=== PATIENT | male | born 1990 | race African-American/Black ===

== ENCOUNTER 2016-09-14 02:00 | Inpatient (IN) | payer OTHER ==
--- NOTE | ~2016-09-14 | DS ---
Unit #: [id number] #: [id number] Patient: MOODY HELLER [id number] [facility] [address] [place] [address] [id number] MR#: [id number] NAME: MOODY HELLER ROOM: [facility] Age: 26 Sex: M Admission Date: 09/14/2016 : 1990 Discharge Date: 09/16/2016 Attending Physician: Ortega Zelaya M.D. Primary Care Physician: Primary Care Physician No DISCHARGE SUMMARY REASON FOR ADMISSION The patient is 26-year-old male, admitted to the [facility] unit for alcohol detox. HOSPITAL COURSE The patient was admitted to the [facility] unit and placed on routine detoxification protocol for alcohol. His stay in the hospital was a brief and uneventful one. He was continued on previously prescribed Seroquel 100 mg at h.s. Family therapy session did take place on 09/16/2016. Discharge took place thereafter with the patient to follow in the dual track chemical dependency intensive outpatient program provided by this facility and through the auspices of the [facility] Department of Psychiatry. FINAL DIAGNOSES Alcohol use disorder; schizoaffective disorder. DISPOSITION ON DISCHARGE The patient is discharged on the following medications: Seroquel 100 mg at bedtime for psychosis. DISCHARGE INSTRUCTIONS No dietary or physical restrictions were placed upon the patient at the time of discharge. FOLLOWUP Followup will take place through the auspices of community mental health resources and the chemical dependency intensive outpatient program provided by this facility and the [facility] Department of Psychiatry. PROGNOSIS The patient's prognosis is considered fair. Dictated by... Ortega Zelaya M.D. CB/rj TD: 09/16/2016 15:43 JOB #: [id number] Unit #: [id number] #: [id number] Patient: MOODY HELLER DISCHARGE SUMMARY Page 1 of 1 X Ortega Zelaya MD X DISCHARGE SUMMARY
--- NOTE | ~2016-09-14 | PN ---
Unit #: [id number] #: [id number] Patient: MOODY HELLER [id number] [facility] [address] [place] [address] [id number] MR#: [id number] NAME: MOODY HELLER ROOM: [facility] Age: 26 Sex: M Admission Date: 09/14/2016 : 1990 Attending Physician: Ortega Zelaya M.D. Admitting Physician: Ortega Zelaya M.D. Primary Care Physician: Primary Care Physician Maru HILL PROGRESS NOTES DATE 09/15/2016 DISCUSSION The patient is in bright spirits today and offers no complaint. He is tolerating medications, and his detox is continuing uneventfully. The patient does report that he does not take Zyprexa at home and wishes to discontinue this medication, and it will be discontinued. Dictated by... Ortega Zelaya M.D. CB/consuelo TD: 09/15/2016 15:10 JOB #: [id number] SERGIO VILLANUEVA NOTES Page 1 of 1 X Ortega Zelaya MD PROGRESS NOTE
--- NOTE | ~2016-09-14 | HP ---
Unit #: [id number] #: [id number] Patient: MOODY HELLER [id number] [place] [address] [id number] I MR#: [id number] NAME: MOODY HELLER ROOM: 74 Age: 26 Sex: M Admission Date: 09/14/2016 : 1990 Attending Physician: Ortega Zelaya M.D. Admitting Physician: Ortega Zelaya M.D. Primary Care Physician: Primary Care Physician No HISTORY AND PHYSICAL HISTORY OF PRESENT ILLNESS Moody is a 26 year old admitted to [facility] because of his abuse of alcohol. He is detoxing. PAST MEDICAL HISTORY Long history of alcohol abuse. PAST SURGICAL HISTORY Nothing reported. ALLERGIES No known drug allergies. SOCIAL HISTORY He does not smoke. Drinks at least a pint of liquor on a daily basis and denies illicit drug use. FAMILY HISTORY Medically noncontributory. REVIEW OF SYSTEMS CONSTITUTIONAL: No fever or chills. HEENT: Denies any sore throat, ear pain or runny nose. CARDIOVASCULAR: Denies chest pain, irregular heart rhythm or palpitations. CHEST: Denies shortness of breath or cough. No hemoptysis. GASTROINTESTINAL: Denies nausea, vomiting, diarrhea or chronic constipation. ENDOCRINE: Denies history of increased thirst or urination. No recent significant weight loss or gain. GENITOURINARY: Denies dysuria, frequency, or hematuria. SKIN: Denies any rashes. HEMATOLOGIC: Denies history of increased bleeding or bruising. MUSCULOSKELETAL: Denies any hot, swollen joints. No generalized muscle pain. NEUROLOGIC: Denies problems with vision or speech. No frequent, severe headaches. No numbness, tingling or weakness in any extremities. Denies loss of bladder or bowel control. CURRENT MEDICATIONS 1. Detox protocol. 2. Zyprexa 2.5 mg q.h.s. 3. Seroquel 100 mg q.h.s. Unit #: [id number] #: [id number] Patient: MOODY HELLER PHYSICAL EXAMINATION GENERAL: Alert, well-nourished, in no apparent distress. VITAL SIGNS: Blood pressure 117/56, heart rate 60, respirations 16, temperature 98.6. WEIGHT: 270. HEIGHT: 6 feet 2 inches. SKIN: Warm and dry without rash or lesion. HEENT: Normocephalic. TMs not viewed. Oral and nasal passages clear. Conjunctivae clear. PERRLA. EOMs intact. NECK: Supple without lymphadenopathy or thyromegaly. HEART: Regular rate and rhythm without murmur. LUNGS: Clear. ABDOMEN: Soft, nontender. : Not done. EXTREMITIES: No evidence of cyanosis, clubbing or edema. Moves all without focal deficit. NEUROLOGICAL: Grossly within normal limits. Cranial Nerves: II: Visual bernard are intact. III, IV AND : Extraocular movements are intact. Pupils are equal, round and reactive to light. V: Facial sensation is grossly normal. VII: Facial movements and expression are normal. VIII: Auditory acuity grossly intact. IX, X: Uvula is midline. Phonation is normal. XI: Patient shrugs shoulders and turns head normally. XII: Tongue protrudes in the midline. Sensory and Motor Function: Sensory and motor sensation is grossly normal. Motor: moves all extremities well. Coordination: Gait is normal. Deep Tendon Reflexes: Intact. IMPRESSION Psychiatric admission. RECOMMENDATIONS PSYCHIATRIC: Per psychiatrist. MEDICAL: See no contraindications to participate in facility's activities. MEDICAL PROGNOSIS Good. MEDICAL CONDITION Stable. Dictated by... Tierney Hayden PJinaAJina-Casandra. for Ifeoma Joya/rafael TD: 09/14/2016 22:05 JOB #: [id number] Unit #: [id number] #: [id number] Patient: MOODY HELLER HISTORY AND PHYSICAL Page 1 of 1 X Tierney Hayden HISTORY AND PHYSICAL
--- NOTE | ~2016-09-14 | PA ---
Unit #: [id number] #: [id number] Patient: MOODY HELLER [id number] [facility] [address] [place] [address] [id number] I MR#: [id number] NAME: MOODY HELLER ROOM: P174 Age: 26 Sex: M Admission Date: 09/14/2016 : 1990 Date of Assessment: 09/14/2016 Attending Physician: Ortega Zelaya M.D. Admitting Physician: Ortega Zelaya M.D. Primary Care Physician: Primary Care Physician No PSYCHIATRIC ASSESSMENT IDENTIFYING INFORMATION The patient is a 26-year-old male admitted with a recent relapse of alcohol use. He also reports increasing auditory hallucinations. CHIEF COMPLAINT None given. INFORMANT(S) Patient and chart, reliability good. HISTORY OF PRESENT ILLNESS The patient is a 26-year-old male who reports recent relapse of alcohol use. The patient reports that this occurred approximately 2 weeks ago. The patient also reports that he has been hearing voices telling him that he is no good, and that he needs to and go to hell. The patient states that he drinks to hear the voices. He states that he has been noncompliant with trial of medications which includes Seroquel and Zyprexa. The patient has also been taking his Naltrexone but had not taken this medication since July. When seen today, the patient reports dysphoric mood and ongoing auditory hallucinations. He expresses great shame over his ongoing alcohol use but denies suicidal ideation. PAST PSYCHIATRIC HISTORY Reviewed, no changes. PAST MEDICAL HISTORY Reviewed, no changes. MEDICATIONS Zyprexa, naltrexone. ALLERGIES None. FAMILY HISTORY Reviewed, no changes. SOCIAL HISTORY Reviewed, no changes. MENTAL STATUS EXAMINATION Unit #: [id number] #: [id number] Patient: MOODY HELLER Examination at this time reveals the patient to be a well-developed well-nourished male appearing stated age. He is in no apparent physical distress at the time of examination. He is awake, alert, and oriented in all spheres. His mood is mildly dysphoric, his affect constricted. Speech is generally well-coherent. There are no gross deficits in memory or cognition noted. Intelligence is judged to be in the average range based on fund of knowledge. The patient is cooperative throughout the interview. He is currently endorsing no suicidal or homicidal ideation. He does report positive auditory hallucinations of a command type. His judgment and insight appear to be significantly impaired. ASSETS AND LIABILITIES The patient's assets: Motivation for change. Liabilities: Ongoing substance use. DIAGNOSTIC IMPRESSION 1. Alcohol use disorder. 2. Schizoaffective disorder. TREATMENT PLAN The patient remains hospitalized for safety and stabilization. We will continue Seroquel and Zyprexa. The patient is on a routine detoxification protocol for alcohol, and suicide precautions are in place. ESTIMATED LENGTH OF STAY 5 to 7 days. Dictated by... Ortega Zelaya M.D. Yovany TD: 09/14/2016 15:06 JOB #: [id number] PSYCHIATRIC ASSESSMENT Page 1 of 1 X Ortega Zelaya MD X PSYCHIATRIC ASSESSMENT
[2016-09-15 09:43] LABS: BASOPHIL% 0.5 % (0-2.5); EOSINOPHIL# 0.5 X10e3 (0-0.7); EOSINOPHIL% 5.4 % (0.0-7.0); HEMATOCRIT 44.9 % (38.0-50.0); HEMOGLOBIN 14.6 gm/dL (13.0-16.0); LYMPHOCYTE# 3.7 X10e3 (1.0-3.5); LYMPHOCYTE% 37.7 % (17.0-45.0); MEAN CELL VOLUME 86.7 FL (83-96); MEAN CORPUSCULAR HEMOGLOBIN 28.2 PG (28-34); MEAN CORPUSCULAR HGB CONC 32.5 g/dL (30-36); MEAN PLATELET VOLUME 8.7 FL (6.5-11.5); MONOCYTE# 0.8 X10e3 (0-1.0); MONOCYTE% 8.2 % (3.0-12.0); NEUTROPHIL# 4.7 X10e3 (1.5-7.1); NEUTROPHIL% 48.2 % (40-75); PLATELET COUNT 251 X10e3 (140-420); RED BLOOD COUNT 5.17 X10e (3.90-5.60); RED CELL DISTRIBUTION WIDTH 14.6 % (11.0-15.5); WHITE BLOOD COUNT 9.7 X10e3 (4.0-10.5)
[2016-09-15 10:01] LABS: DIFF IND NO
[2016-09-15 10:18] LABS: ALBUMIN SERUM 4.1 g/dL (3.5-5.0); BILIRUBIN,TOTAL 0.6 mg/dL (0.2-2.0); BUN/CREATININE RATIO 11.66; CALCIUM SERUM 9.9 mg/dL (8.4-10.2); CREATININE SERUM 1.2 mg/dL (0.6-1.4); GLOM FILT RATE Estimated 96.2 mL/min (>60); POTASSIUM 4.1 mmol/L (3.5-5.1); PROTEIN TOTAL SERUM 7.5 g/dL (6.0-8.3)
[2016-09-17 09:41] LABS: URINE APPEARANCE CLEAR; URINE BILIRUBIN NEG (NEG); URINE BLOOD NEG (NEG); URINE COLOR DK YELLOW; URINE GLUCOSE NEG (NEG); URINE KETONE TRACE (NEG); URINE LEUKOCYTE ESTERASE NEG (NEG); URINE NITRATE NEG (NEG); URINE PH 6.5 (5-8); URINE PROTEIN TRACE (NEG); URINE SPECIFIC GRAVITY 1.027 (1.003-1.035)
[2016-09-17 11:06] LABS: AMPHETAMINE NEG (NEG); BARBITURATES NEG (NEG); BENZODIAZEPINES POS (NEG); COCAINE NEG (NEG); MARIJUANA NEG (NEG); OPIATES NEG (NEG); TRICYCLIC ANTIDEPRESSANTS NEG (NEG); U METHADONE NEG (NEG)
== END 2016-09-16 15:25 | DRG 897 ==
LOC: P1E 06:12
PROVIDERS: Specialist
PROC: HZ2ZZZZ Detoxification Services for Substance Abuse Treatment (ICD-10-PCS; principal; 2016-09-14)
DX: F10.10 Alcohol abuse, uncomplicated (principal); F25.9 Schizoaffective disorder, unspecified
CPT/HCPCS: 80053; 80307; 81003; 85025; 86592